=== PATIENT | male | born 1985 | race Caucasian/White ===

== ENCOUNTER 2020-11-11 10:18 | Day surgery (SDC) | payer MEDICAID ==
[~2020-11-11] VITALS: Ht 162.6 cm; Wt 146.4 kg
[2020-11-11 10:28] VITALS: BP 118/62
[2020-11-11] MEDS ORDERED: MIDAZolam 5mg/5ml vial ONE (10:34)
[2020-11-11] MEDS ORDERED: fentaNYL/PF 50MCG/1 ML 2ML syringe ONE (10:34)
[2020-11-11] MEDS ORDERED: LIDOcaine Viscous 15ml cup ONE (10:34)
[2020-11-11] MEDS ORDERED: BUSP10TA3 PO (10:57)
[2020-11-11] MEDS ORDERED: DIVA500T28 PO (10:58)
[2020-11-11] MEDS ORDERED: FLUO40CA10 PO (10:59)
[2020-11-11] MEDS ORDERED: LORA-657 PO (10:59)
[2020-11-11] MEDS ORDERED: METF-436 PO (11:01)
[2020-11-11] MEDS ORDERED: PALI9TAB PO (11:02)
[2020-11-11] MEDS ORDERED: OMEP-50 PO (11:02)
[2020-11-11] MEDS ORDERED: CHOL20002 PO (11:03)
[2020-11-11 11:20] VITALS: BP 145/69
[2020-11-11 11:30] VITALS: BP 118/72
[2020-11-11 11:40] VITALS: BP 119/68
[2020-11-11 11:50] VITALS: BP 124/74
== END 2020-11-11 12:20 | disposition home or self-care (01) ==
LOC: GI LAB 10:18
PROVIDERS: ATTEND Internal Medicine Gastroenterology
DX: K21.9 Gastro-esophageal reflux disease without esophagitis (principal); K29.60 Other gastritis without bleeding; E66.9 Obesity, unspecified; Z68.43 Body mass index [BMI] 50.0-59.9, adult; Z79.899 Other long term (current) drug therapy
CPT/HCPCS: 43239; 99152; J2250; J3010; J7040; A4620